=== PATIENT | female | born 1990 | race Caucasian/White ===

== ENCOUNTER 2017-02-02 14:28 | Inpatient (IN) | payer MEDICAID ==
[~2017-02-02] VITALS: Ht 152.4 cm; Wt 59.9 kg
[2017-02-02] MEDS ORDERED: ONDANSETRON 2MG/ML, 2ML IVPush ONE (19:00)
[2017-02-02] MEDS ORDERED: SODIUM CHLORIDE FLUSH 10ML SYR IVF ONE (19:00)
[2017-02-02] MEDS ORDERED: LIDOCAINE 1%, 20ML SQ ONE (19:00)
[2017-02-02] MEDS ORDERED: SODIUM CHLORIDE 0.9% 1,000ML IVBOLUS ONE (19:00)
[2017-02-02] MEDS ORDERED: CLINDAMYCIN PMX 900MG/50ML 50 ML IVPB ONE (19:00)
[2017-02-02 19:09] LABS: HEMATOCRIT 43.2 % (34.6-47.8); HEMOGLOBIN 14.3 g/dL (11.7-16.4); WHITE BLOOD COUNT 13.5 x10^3/uL (3.4-10)
[2017-02-02] MEDS ORDERED: morphine SULFATE 10 MG/ML, 1ML ONE ×2 (19:10→21:52)
[2017-02-02] MEDS ORDERED: ONDANSETRON 2MG/ML, 2ML ONE (19:10)
[2017-02-02] MEDS: MORPHINE SULFATE 4 MG/ML, 1ML IV PRN ×2 (19:15→21:55)
[2017-02-02 19:17] LABS: BLOOD UREA NITROGEN 14 mg/dL (7-18)
[2017-02-02] MEDS ORDERED: CLINDAMYCIN PMX 900MG/50ML 50 ML ONE (20:01)
[2017-02-02] MEDS ORDERED: SODIUM CHLORIDE 0.9% 1,000 ML IV ONE (20:48)
[2017-02-02] MEDS ORDERED: ONDANSETRON 2MG/ML, 2ML IVPush PRN (21:00)
[2017-02-02] MEDS ORDERED: MORPHINE SULFATE 4 MG/ML, 1ML IVPush PRN (21:00)
[2017-02-02] MEDS ORDERED: POLYETHYLENE GLYCOL 17 GM PACKET PO PRN (21:30)
[2017-02-02] MEDS ORDERED: ONDANSETRON ODT 4 MG PO PRN (21:30)
[2017-02-02] MEDS ORDERED: morphine SULFATE 10 MG/ML, 1ML IVPush PRN (21:30)
[2017-02-02] MEDS: ENOXAPARIN 40 MG/0.4 ML SQ SCH (21:30)
[2017-02-02 22:32] VITALS: BP 106/70
[2017-02-03 01:54] VITALS: BP 98/61
[2017-02-03] MEDS: CLINDAMYCIN PMX 900MG/50ML 50 ML IV SCH ×3 (04:09→20:36)
[2017-02-03 05:31] LABS: HEMATOCRIT 38.7 % (34.6-47.8); WHITE BLOOD COUNT 11.4 x10^3/uL (3.4-10)
[2017-02-03 05:50] LABS: BLOOD UREA NITROGEN 11 mg/dL (7-18)
[2017-02-03] MEDS: OXYcodone/APAP 10/325MG TABLET PO PRN ×3 (06:29→18:24)
[2017-02-03 06:59] VITALS: BP 97/64
[2017-02-03 14:12] VITALS: BP 97/62
[2017-02-03] MEDS: morphine SULFATE 10 MG/ML, 1ML IVPush PRN ×2 (15:09→19:40)
[2017-02-03] MEDS: NICOTINE 14MG/24 HR PATCH.TD24 TD SCH (16:48)
[2017-02-03 19:51] VITALS: BP 95/60
[2017-02-03] MEDS: ENOXAPARIN 40 MG/0.4 ML SQ SCH (20:36)
[2017-02-03] MEDS ORDERED: LORazepam 2 MG/ML, 1ML IVPush ONE (23:00)
[2017-02-04 00:09] VITALS: BP 99/62
[2017-02-04] MEDS: OXYcodone/APAP 10/325MG TABLET PO PRN ×4 (00:32→20:11)
[2017-02-04] MEDS: CLINDAMYCIN PMX 900MG/50ML 50 ML IV SCH ×3 (04:00→20:11)
[2017-02-04] MEDS: morphine SULFATE 10 MG/ML, 1ML IVPush PRN ×3 (04:41→17:31)
[2017-02-04] MEDS: ACETAMINOPHEN 325 MG TABLET PO PRN ×2 (04:44→17:31)
[2017-02-04 04:56] LABS: HEMATOCRIT 39.2 % (34.6-47.8); HEMOGLOBIN 12.9 g/dL (11.7-16.4); WHITE BLOOD COUNT 8.9 x10^3/uL (3.4-10)
[2017-02-04 05:03] LABS: BLOOD UREA NITROGEN 11 mg/dL (7-18)
[2017-02-04 08:00] VITALS: BP 103/63
[2017-02-04] MEDS: LORazepam 1MG TABLET PO PRN (13:31)
[2017-02-04 14:54] VITALS: BP 108/72
[2017-02-04] MEDS: NICOTINE 14MG/24 HR PATCH.TD24 TD SCH (15:35)
[2017-02-04] MEDS: ENOXAPARIN 40 MG/0.4 ML SQ SCH (20:09)
[2017-02-04 20:49] VITALS: BP 91/54
[2017-02-05 00:38] VITALS: BP 102/67
[2017-02-05] MEDS: morphine SULFATE 10 MG/ML, 1ML IVPush PRN ×5 (00:39→22:30)
[2017-02-05] MEDS: ACETAMINOPHEN 325 MG TABLET PO PRN ×2 (01:51→21:31)
[2017-02-05] MEDS: CLINDAMYCIN PMX 900MG/50ML 50 ML IV SCH ×3 (04:08→21:31)
[2017-02-05] MEDS: OXYcodone/APAP 10/325MG TABLET PO PRN ×3 (04:08→21:27)
[2017-02-05 04:32] LABS: HEMATOCRIT 41.7 % (34.6-47.8); HEMOGLOBIN 13.8 g/dL (11.7-16.4); WHITE BLOOD COUNT 10.8 x10^3/uL (3.4-10)
[2017-02-05 04:44] LABS: BLOOD UREA NITROGEN 5 mg/dL (7-18)
[2017-02-05 07:35] VITALS: BP 102/71
[2017-02-05] MEDS: LORazepam 1MG TABLET PO PRN ×2 (07:50→14:40)
[2017-02-05 12:56] VITALS: BP 107/70
[2017-02-05] MEDS: NICOTINE 14MG/24 HR PATCH.TD24 TD SCH (14:40)
[2017-02-05 19:32] VITALS: BP 118/73
[2017-02-05] MEDS ORDERED: POLYETHYLENE GLYCOL 17 GM PACKET PO PRN (20:30)
[2017-02-05] MEDS ORDERED: ONDANSETRON ODT 4 MG PO PRN (20:30)
[2017-02-05] MEDS: ENOXAPARIN 40 MG/0.4 ML SQ SCH (21:30)
[2017-02-06 02:38] VITALS: BP 90/59
[2017-02-06] MEDS: CLINDAMYCIN PMX 900MG/50ML 50 ML IV SCH ×3 (04:10→19:37)
[2017-02-06] MEDS: OXYcodone/APAP 10/325MG TABLET PO PRN ×2 (04:10→21:38)
[2017-02-06 05:26] LABS: HEMATOCRIT 42.4 % (34.6-47.8); HEMOGLOBIN 14.2 g/dL (11.7-16.4); WHITE BLOOD COUNT 8.9 x10^3/uL (3.4-10)
[2017-02-06 05:38] LABS: BLOOD UREA NITROGEN 9 mg/dL (7-18)
[2017-02-06] MEDS: morphine SULFATE 10 MG/ML, 1ML IVPush PRN ×6 (06:41→23:31)
[2017-02-06 07:18] VITALS: BP 95/58
[2017-02-06] MEDS: ACETAMINOPHEN 325 MG TABLET PO PRN (07:49)
[2017-02-06 13:49] VITALS: BP 99/65
[2017-02-06 14:21] LABS: HCG UR LOT HCG7030192
[2017-02-06 14:53] LABS: HCG UR OBC PASS
[2017-02-06] MEDS ORDERED: DEXAMETHASONE 4 MG/ML, 1ML ONE (15:57)
[2017-02-06] MEDS ORDERED: PROPOFOL 10 MG/ML, 20ML ONE (15:57)
[2017-02-06] MEDS ORDERED: CEFAZOLIN 1,000 MG ONE (15:57)
[2017-02-06] MEDS ORDERED: ONDANSETRON 2MG/ML, 2ML ONE (15:57)
[2017-02-06] MEDS ORDERED: SUCCINYLCHOLINE 20 MG/ML, 10ML ONE (15:57)
[2017-02-06] MEDS ORDERED: ROCURONIUM 10MG/ML,5ML ONE (15:57)
[2017-02-06] MEDS ORDERED: MIDAZOLAM 1 MG/ML, 2ML ONE ×2 (15:59→16:40)
[2017-02-06] MEDS ORDERED: ONDANSETRON 2MG/ML, 2ML IVPush PRN ×2 (16:00→16:30)
[2017-02-06] MEDS ORDERED: hydrALAzine 20 MG/ML, 1ML IV PRN ×2 (16:00→16:30)
[2017-02-06] MEDS ORDERED: HYDROmorphone 1 MG/ML, 1ML IV PRN (16:00)
[2017-02-06] MEDS ORDERED: LABETALOL 5MG/ML, 20ML IV PRN ×2 (16:00→16:30)
[2017-02-06] MEDS ORDERED: OXYcodone 5 MG/5 ML ORAL.SOL UDC PO PRN ×2 (16:00→16:30)
[2017-02-06] MEDS ORDERED: ACETAMINOPHEN 325 MG TABLET PO PRN ×2 (16:00→16:30)
[2017-02-06] MEDS ORDERED: METOCLOPRAMIDE 5 MG/ML, 2ML IV PRN ×2 (16:00→16:30)
[2017-02-06] MEDS ORDERED: FENTANYL PF 100 MCG/2ML IV PRN (16:30)
[2017-02-06] MEDS ORDERED: ACETAMINOPHEN 325 MG TABLET ONE (16:34)
[2017-02-06] MEDS ORDERED: OXYcodone 5 MG/5 ML ORAL.SOL UDC ONE (16:34)
[2017-02-06] MEDS ORDERED: FENTANYL PF 100 MCG/2ML ONE (16:34)
[2017-02-06] MEDS: FENTANYL PF 100 MCG/2ML IV PRN ×2 (16:37→16:47)
[2017-02-06] MEDS ORDERED: HYDROmorphone 2 MG/ML, 1ML ONE ×2 (16:40→17:16)
[2017-02-06] MEDS: HYDROmorphone 1 MG/ML, 1ML IV PRN ×6 (16:45→17:30)
[2017-02-06] MEDS ORDERED: MIDAZOLAM 1 MG/ML, 2ML IV PRN (17:00)
[2017-02-06 18:57] VITALS: BP 101/66
[2017-02-06] MEDS: ENOXAPARIN 40 MG/0.4 ML SQ SCH (19:38)
[2017-02-06] MEDS: NICOTINE 14MG/24 HR PATCH.TD24 TD SCH (19:38)
[2017-02-06] MEDS: LORazepam 1MG TABLET PO PRN (21:38)
[2017-02-07 00:48] VITALS: BP 96/63
[2017-02-07] MEDS: morphine SULFATE 10 MG/ML, 1ML IVPush PRN ×4 (03:45→19:32)
[2017-02-07] MEDS: CLINDAMYCIN PMX 900MG/50ML 50 ML IV SCH (03:45)
[2017-02-07] MEDS: OXYcodone/APAP 10/325MG TABLET PO PRN ×3 (04:52→18:01)
[2017-02-07] MEDS ORDERED: VANCOMYCIN PER PHARMACY MC PRN (08:30)
[2017-02-07 09:09] VITALS: BP 98/66
[2017-02-07] MEDS ORDERED: PHARMACOKINETIC MONITORING MC PRN (10:00)
[2017-02-07] MEDS: VANCOMYCIN 1,300 MG in SODIUM CHLORIDE 0.9% 250 ML IV SCH ×2 (10:11→22:09)
[2017-02-07] MEDS: DIPHENHYDRAMINE 25 MG CAPSULE PO PRN ×2 (12:07→18:01)
[2017-02-07 12:31] VITALS: BP 97/65
[2017-02-07 15:53] VITALS: BP 96/63
[2017-02-07 18:42] VITALS: BP 99/66
[2017-02-07] MEDS: NICOTINE 14MG/24 HR PATCH.TD24 TD SCH (19:54)
[2017-02-07] MEDS: ENOXAPARIN 40 MG/0.4 ML SQ SCH (19:54)
[2017-02-07] MEDS: ACETAMINOPHEN 325 MG TABLET PO PRN (22:11)
[2017-02-07] MEDS: LORazepam 1MG TABLET PO PRN (23:18)
[2017-02-08 04:21] VITALS: BP 105/60
[2017-02-08 04:47] LABS: HEMATOCRIT 41.1 % (34.6-47.8); HEMOGLOBIN 13.8 g/dL (11.7-16.4); WHITE BLOOD COUNT 5.7 x10^3/uL (3.4-10)
[2017-02-08 05:00] LABS: BLOOD UREA NITROGEN 14 mg/dL (7-18)
[2017-02-08] MEDS: OXYcodone/APAP 10/325MG TABLET PO PRN ×4 (05:44→19:09)
[2017-02-08 07:51] VITALS: BP 109/66
[2017-02-08] MEDS: VANCOMYCIN 1,300 MG in SODIUM CHLORIDE 0.9% 250 ML IV SCH ×2 (09:22→22:44)
[2017-02-08] MEDS: morphine SULFATE 10 MG/ML, 1ML IVPush PRN ×3 (09:22→21:05)
[2017-02-08 13:43] VITALS: BP 99/59
[2017-02-08] MEDS: ACETAMINOPHEN 325 MG TABLET PO PRN (14:01)
[2017-02-08] MEDS: LORazepam 1MG TABLET PO PRN (14:01)
[2017-02-08] MEDS ORDERED: IBUPROFEN 200 MG TABLET ONE (16:28)
[2017-02-08] MEDS: IBUPROFEN 600 MG TABLET PO PRN (16:39)
[2017-02-08] MEDS: NICOTINE 14MG/24 HR PATCH.TD24 TD SCH (19:58)
[2017-02-08] MEDS: ENOXAPARIN 40 MG/0.4 ML SQ SCH (20:00)
[2017-02-08 20:04] VITALS: BP_SYST 109; BP_SYST 87; BP_DIAS 48; BP_DIAS 71
[2017-02-08] MEDS: DIPHENHYDRAMINE 25 MG CAPSULE PO PRN (22:55)
[2017-02-09 01:38] VITALS: BP 105/72
[2017-02-09] MEDS: morphine SULFATE 10 MG/ML, 1ML IVPush PRN ×4 (01:48→21:15)
[2017-02-09] MEDS: OXYcodone/APAP 10/325MG TABLET PO PRN ×3 (04:18→20:45)
[2017-02-09 05:22] LABS: HIV 1&2 ANTIBODY SCREEN Nonreactive (Nonreactive); HIV-1 p24 ANTIGEN Nonreactive (Nonreactive)
[2017-02-09 07:20] VITALS: BP 96/61
[2017-02-09] MEDS ORDERED: IBUPROFEN 200 MG TABLET ONE ×2 (09:47→16:48)
[2017-02-09] MEDS: IBUPROFEN 600 MG TABLET PO PRN ×3 (09:59→23:34)
[2017-02-09 13:42] VITALS: BP 97/61
[2017-02-09] MEDS: VANCOMYCIN 1,300 MG in SODIUM CHLORIDE 0.9% 250 ML IV SCH (14:08)
[2017-02-09] MEDS: ACETAMINOPHEN 325 MG TABLET PO PRN (14:09)
[2017-02-09 19:04] VITALS: BP 99/63
[2017-02-09] MEDS: ENOXAPARIN 40 MG/0.4 ML SQ SCH (20:00)
[2017-02-09] MEDS: NICOTINE 14MG/24 HR PATCH.TD24 TD SCH (20:46)
[2017-02-10] MEDS: VANCOMYCIN 1,300 MG in SODIUM CHLORIDE 0.9% 250 ML IV SCH ×2 (01:56→13:49)
[2017-02-10] MEDS: morphine SULFATE 10 MG/ML, 1ML IVPush PRN (01:56)
[2017-02-10 02:43] VITALS: BP 100/47
[2017-02-10 07:14] VITALS: BP 95/53
[2017-02-10] MEDS: IBUPROFEN 600 MG TABLET PO PRN (11:01)
[2017-02-10] MEDS: OXYcodone/APAP 10/325MG TABLET PO PRN (13:48)
[2017-02-10 14:00] VITALS: BP 113/64
[2017-02-10] MEDS ORDERED: IBUP-1222 PO (15:41)
[2017-02-10] MEDS ORDERED: SULF1TAB24 PO (15:46)
== END 2017-02-10 17:14 | disposition home or self-care (01) | DRG 854 ==
LOC: ED 20:57 → EDIP 21:22 → 3NW 22:19 → 3NE 02-09 22:44
PROVIDERS: ADMIT Family Medicine; ATTEND Family Medicine
PROC: 0KB60ZZ Excision of Left Shoulder Muscle, Open Approach (ICD-10-PCS; principal; 2017-02-06 16:00)
DX: A41.9 Sepsis, unspecified organism (principal); L02.414 Cutaneous abscess of left upper limb; F11.90 Opioid use, unspecified, uncomplicated; L03.114 Cellulitis of left upper limb; Z59.0 Homelessness
CPT/HCPCS: 36415; 80048; 80202; 81025; 82040; 83605; 84145; 85025; 86703; 86704; 86706; 86708; 86803; 87040; 87070; 87075; 87077; 87147; 87186; 87205; 87340; 87899; 93005; 96361; 96365; 96375; 96376; J0690; J1100; J1170; J1650; J2250; J2405; J2704; J3010; J3370; G0435; J0330; J2060; J2270; J7030; J7050; Q0163